=== PATIENT | male | born 1940 ===

== ENCOUNTER 2021-10-04 10:45 | Inpatient (IN) | payer OTHER ==
[~2021-10-04] VITALS: Ht 177.8 cm; Wt 81.6 kg
[2021-10-04] MEDS ORDERED: CRESTOR20 MG (11:00)
[2021-10-04] MEDS ORDERED: ENALAPRIL MALEAT5 MG (11:00)
[2021-10-04] MEDS ORDERED: METFORMIN500 MG/5 M (11:00)
[2021-10-04] MEDS ORDERED: GLIPIZIDE XL5 MG (11:00)
[2021-10-04] MEDS ORDERED: NEXIUM20 M1 (11:00)
[2021-10-09] MEDS ORDERED: NEURONTIN800 MG PO (07:36)
[2021-10-09] MEDS ORDERED: MEDROLPACK PO (07:36)
[2021-10-09] MEDS ORDERED: AMOX-CLAV 875-1 EACH PO (07:36)
[2021-10-09] MEDS ORDERED: DIAZEPAM5 MG PO (07:36)
[2021-10-09] MEDS ORDERED: COLACE100 MG PO (07:36)
[2021-10-09] MEDS ORDERED: PERCOCET 5-3251 EACH PO (07:36)
== END 2021-10-11 09:50 | DRG 455 ==
LOC: O/R 10-09 04:35 → SURH 10-09 07:00 → PED 10-09 14:15
PROVIDERS: ADMIT Orthopaedic Surgery Orthopaedic Surgery of the Spine; ATTEND Orthopaedic Surgery Orthopaedic Surgery of the Spine
PROC: 0SG1071 Fusion of 2 or more Lumbar Vertebral Joints with Autologous Tissue Substitute, Posterior Approach, Posterior Column, Open Approach (ICD-10-PCS; 2021-10-09)
PROC: 0SG107J Fusion of 2 or more Lumbar Vertebral Joints with Autologous Tissue Substitute, Posterior Approach, Anterior Column, Open Approach (ICD-10-PCS; 2021-10-09)
PROC: 0ST20ZZ Resection of Lumbar Vertebral Disc, Open Approach (ICD-10-PCS; 2021-10-09)
PROC: 0SG10AJ Fusion of 2 or more Lumbar Vertebral Joints with Interbody Fusion Device, Posterior Approach, Anterior Column, Open Approach (ICD-10-PCS; principal; 2021-10-09 07:00)
DX: M43.16 Spondylolisthesis, lumbar region (principal); M48.061 Spinal stenosis, lumbar region without neurogenic claudication; M51.36 Other intervertebral disc degeneration, lumbar region; E11.9 Type 2 diabetes mellitus without complications; I10 Essential (primary) hypertension; Z20.822 Contact with and (suspected) exposure to COVID-19; Z79.4 Long term (current) use of insulin